=== PATIENT | female | born 1970 | race Asian ===

== ENCOUNTER 2020-11-14 04:16 | Emergency (ER) | payer OTHER ==
[~2020-11-14] VITALS: Ht 144.8 cm; Wt 65.8 kg
[2020-11-14 04:20] VITALS: BP_SYST 163
[2020-11-14] MEDS ORDERED: predniSONE 20 MG TABLET PO ONE (05:15)
[2020-11-14] MEDS ORDERED: predniSONE 20 MG TABLET ONE ×2 (05:15→05:18)
[2020-11-14 05:20] VITALS: BP_SYST 163
== END 2020-11-14 05:20 | disposition home or self-care (01) ==
LOC: SED 04:16
DX: L30.9 Dermatitis, unspecified (principal); L29.9 Pruritus, unspecified; I10 Essential (primary) hypertension; Z79.899 Other long term (current) drug therapy
CPT/HCPCS: 99283; J7512